=== PATIENT | female | born 1960 | race Caucasian/White ===

== ENCOUNTER 2017-05-29 19:45 | Emergency (ER) | payer OTHER ==
[2017-05-29] MEDS ORDERED: PERCOCET TABLET 5/325MG PO STA (20:07)
[2017-05-29] MEDS ORDERED: PERCOCET TABLET 5/325MG ONE (20:09)
--- NOTE | 2017-05-29 20:24 | ERPHSYRPT ---
- History of Present Illness Time Seen by Provider: 05/29/17 20:10 Source: patient Exam Limitations: no limitations Patient Subjective Stated Complaint: Pt c/o left foot pain since " or Monday". Pt sts dropped a "tub of crystals" on her left foot. Pt C/O pain left foot 04/02. Has not taken anything for pain or discomfort at home. Triage Nursing Assessment: Pt alert, oriented, answers all questions appropriately. Skin pink, warm, dry. Resps non-labored. Pt able to transfer self from wheelchair to bed with assist x 1. Pt with obvious swelling and redness left foot and left ankle. 2+ pedal pulses noted. Physician History: 57 y/o female comes to the ER after a tub of crystals fell on her left foot on of last week. Pt says she is having a difficult time putting weight on it. Pt describes the pain as sharp, constant, 8/10, worse with movement and not relieved on motrin. Pt has noticed that the swelling has gotten worse and is a diabetic patient. Method of Injury: direct blow Occurred: last week Quality: sharpness Severity of Pain-Max: severe Severity of Pain-Current: severe Lower Extremities Pain: foot: left Modifying Factors: Improves With: nothing Associated Symptoms: unable to bear weight Allergies/Adverse Reactions: gabapentin Adverse Reaction (Verified 05/29/17 20:14) Immunizations Up to Date: Yes - Review of Systems Constitutional: No Fever, No Chills Eyes: No Symptoms Ears, Nose, & Throat: No Symptoms Respiratory: No Cough, No Dyspnea Cardiac: No Chest Pain, No Edema, No Syncope Abdominal/Gastrointestinal: No Abdominal Pain, No Nausea, No Vomiting, No Diarrhea Genitourinary Symptoms: No Dysuria Musculoskeletal: Joint Swelling, No Back Pain, No Neck Pain Skin: Cellulitis, No Rash Neurological: No Dizziness, No Focal Weakness, No Sensory Changes Psychological: No Symptoms Endocrine: No Symptoms All Other Systems: Reviewed and Negative - Past Medical History Pertinent Past Medical History: Yes Cardiac History: Hypertension Endocrine Medical History: Diabetes Type II Other Medical History: gout, pt cannot remember other medical problems. - Past Surgical History Past Surgical History: Yes Female Surgical History: Hysterectomy Other Surgical History: right shoulder, left knee - Social History Smoking Status: Current every day smoker How long have you smoked: 42 Exposure to second hand smoke: No Drug Use: none Patient Lives Alone: No - Nursing Vital Signs Nursing Vital Signs: Initial Vital Signs Temperature 98.4 F 05/29/17 20:04 Pulse Rate 97 H 05/29/17 20:04 Respiratory Rate 16 05/29/17 20:04 Blood Pressure 128/74 05/29/17 20:04 O2 Sat by Pulse Oximetry 95 05/29/17 20:04 Pain Scale Pain Intensity 9 - Physical Exam General Appearance: alert Eyes, Ears, Nose, Throat Exam: moist mucous membranes Neck Exam: non-tender, supple Cardiovascular/Respiratory Exam: chest non-tender, normal breath sounds, regular rate/rhythm, no respiratory distress Gastrointestinal/Abdominal Exam: non-tender, guarding Back Exam: normal inspection, No vertebral tenderness Foot Exam: left foot: limited range of motion, pain, soft tissue tenderness, swelling Neuro/Tendon Exam: normal sensation, normal motor functions Mental Status Exam: alert, oriented x 3, cooperative Skin Exam: normal color, warm, dry SpO2: 95 Oxygen Delivery: Room Air - Course Nursing assessment & vital signs reviewed: Yes Ordered Tests: Active Orders 24 hr Category Date Time Status Crutches STAT Care 05/29/17 21:25 Active Splint STAT Care 05/29/17 21:25 Active FOOT (MINIMUM 3 VIEWS) Stat Exams 05/29/17 Taken Medication Summary Discontinued Medications Generic Name Dose Route Start Last Admin Trade Name Claudia PRN Reason Stop Dose Admin Oxycodone/Acetaminophen 1 tab 05/29/17 20:07 05/29/17 20:10 Percocet Tablet 5/325mg PO 05/29/17 20:08 1 tab STAT STA Administration Oxycodone/Acetaminophen Confirm 05/29/17 20:09 Percocet Tablet 5/325mg Administered 05/29/17 20:10 Dose 1 tab .ROUTE .STK-MED ONE Trimethoprim/Sulfamethoxazole 1 tab 05/29/17 21:23 05/29/17 21:28 Bactrim Ds Tablet PO 05/29/17 21:24 1 tab STAT STA Administration Trimethoprim/Sulfamethoxazole Confirm 05/29/17 21:27 Bactrim Ds Tablet Administered 05/29/17 21:28 Dose 1 tab PO .STK-MED ONE - Progress Progress: improved Progress Note: 05/29/17 21:26 The x ray of the foot does not show any acute fracture but the foot appears to be cellulitic. Pt will be d/d home with a post op shoe, crutches, percocet and bactrim. - Departure Time of Disposition: 21:27 Departure Disposition: Home Clinical Impression: Foot pain Qualifiers: Laterality: left Qualified Code(s): M79.672 - Pain in left foot Cellulitis Qualifiers: Site of cellulitis: other site Qualified Code(s): L03.818 - Cellulitis of other sites Condition: Stable Critical Care Time: No Referrals: JORGE A TSAI MD [Primary Care Provider] - Instructions: Cellulitis -- Adult, Foot Pain Additional Instructions: Follow up with your primary care doctor if you should have worsening pain or you are not able to ambulate. Prescriptions: Oxycodone HCl/Acetaminophen [Percocet 5-325 mg Tablet] 1 each PO QID PRN #15 tablet PRN Reason: Pain Sulfamethoxazole/Trimethoprim [Bactrim Ds Tablet] 1 each PO BID #13 tablet
[2017-05-29] MEDS ORDERED: BACTRIM DS TABLET PO STA (21:23)
[2017-05-29] MEDS ORDERED: BACTRIM DS TABLET PO ONE (21:27)
[2017-05-29 21:54] VITALS: BP 102/55; PULSE 70; O2SAT 96
--- NOTE | 2017-05-30 09:06 | XRAY ---
Indication: Pain and swelling following injury 4 days ago. Comparison: None 3 nonweightbearing views of the left foot demonstrates anterior soft tissue swelling, osteopenia, and tiny heel spurs. No other bony, articular, or soft tissue abnormalities.
== END 2017-05-29 21:55 | disposition home or self-care (01) ==
LOC: ED 19:45
DX: M79.672 Pain in left foot (principal); L03.818 Cellulitis of other sites; W20.8XXA Other cause of strike by thrown, projected or falling object, initial encounter; I10 Essential (primary) hypertension; E11.9 Type 2 diabetes mellitus without complications
CPT/HCPCS: 73630; 99283; A9270-GY

== ENCOUNTER 2018-11-06 11:10 | Emergency (ER) | payer OTHER ==
[2018-11-06 12:11] VITALS: BP 116/75; PULSE 79; O2SAT 97
--- NOTE | 2018-11-06 12:33 | XRAY ---
Indication: Pain and swelling following fall. Comparison: May 29, 2017. 3 nonweightbearing views of the left foot demonstrates stable osteopenia and tiny heel spurs. No new/acute bony, articular, or soft tissue abnormalities.
--- NOTE | 2018-11-06 12:52 | ERPHSYRPT ---
- History of Present Illness Time Seen by Provider: 11/06/18 11:40 Source: patient, family Patient Subjective Stated Complaint: "I fell 2 days ago about 4 or 5 times due to inner ear infection and being dizzy". "My foot is bruised and swollen and hurts to walik on". "I recently finished antibiotic for ear infection that was prescribed by dr Mckeon." Triage Nursing Assessment: Aaoc3, color good, no resp distress, swelling and discoloration noted to left foot. Physician History: 58 y/o white female presents with complaint of left foot pain. pt has fallen a few times at home during last week while fighting an inner ear infection with dizzines. pt fell and hurt left foot. since there was pain, swelling and bruising, she wanted it evaluated. Method of Injury: fell Occurred: last week Quality: aching Severity of Pain-Max: mild Severity of Pain-Current: mild Lower Extremities Pain: foot: left Modifying Factors: Improves With: movement Associated Symptoms: dizzy (being tx for an inner ear infection) Allergies/Adverse Reactions: gabapentin Adverse Reaction (Verified 05/29/17 20:14) Hx Tetanus, Diphtheria Vaccination/Date Given: No Hx Influenza Vaccination/Date Given: No Hx Pneumococcal Vaccination/Date Given: No Immunizations Up to Date: No - Review of Systems Constitutional: No Symptoms Eyes: No Symptoms Ears, Nose, & Throat: No Symptoms Respiratory: No Symptoms Cardiac: No Symptoms Abdominal/Gastrointestinal: No Symptoms Genitourinary Symptoms: No Symptoms Musculoskeletal: No Symptoms, Fall (left foot pain), Injury Skin: No Symptoms Neurological: Dizziness (fighting with and being tx for inner ear infection) Psychological: No Symptoms Endocrine: No Symptoms Hematologic/Lymphatic: No Symptoms Immunological/Allergic: No Symptoms All Other Systems: Reviewed and Negative - Past Medical History Pertinent Past Medical History: Yes Neurological History: No Pertinent History ENT History: No Pertinent History Cardiac History: Hypertension Respiratory History: No Pertinent History Endocrine Medical History: Diabetes Type II Musculoskeletal History: No Pertinent History GI Medical History: No Pertinent History, GERD History: No Pertinent History Psycho-Social History: Depression Female Reproductive Disorders: No Pertinent History Other Medical History: gout, pt cannot remember other medical problems. - Past Surgical History Past Surgical History: Yes Neuro Surgical History: No Pertinent History Cardiac: No Pertinent History Gastrointestinal: No Pertinent History Genitourinary: No Pertinent History Female Surgical History: Hysterectomy Other Surgical History: right shoulder, left knee - Social History Smoking Status: Current every day smoker How long have you smoked: 6 Exposure to second hand smoke: Yes Drug Use: none Patient Lives Alone: Yes - Female History Hx Now: No - Nursing Vital Signs Nursing Vital Signs: Initial Vital Signs Temperature 98.5 F 11/06/18 11:23 Pulse Rate 85 11/06/18 11:23 Respiratory Rate 20 11/06/18 11:23 Blood Pressure 117/77 11/06/18 11:23 O2 Sat by Pulse Oximetry 92 L 11/06/18 11:23 Pain Scale Pain Intensity 9 - Physical Exam General Appearance: no apparent distress, alert, anxiety Eyes, Ears, Nose, Throat Exam: normal ENT inspection, moist mucous membranes Neck Exam: normal inspection, non-tender, supple, full range of motion Cardiovascular/Respiratory Exam: chest non-tender Gastrointestinal/Abdominal Exam: non-tender, soft Back Exam: normal inspection, normal range of motion, No CVA tenderness, No vertebral tenderness Hips Exam: bilateral: non-tender, normal inspection, normal range of motion, no evidence of injury Legs Exam: bilateral leg: non-tender, normal inspection, normal range of motion , no evidence of injury Knees Exam: bilateral knee: non-tender, normal inspection, normal range of motion, no evidence of injury Ankle Exam: bilateral ankle: non-tender, normal inspection, normal range of motion, no evidence of injury Foot Exam: right foot: non-tender, normal range of motion, left foot: soft tissue tenderness, bilateral foot: ecchymosis, swelling Neuro/Tendon Exam: normal sensation, normal motor functions, normal tendon functions, responds to pain Mental Status Exam: alert, oriented x 3, cooperative Skin Exam: other (bruising present bilat feet) SpO2 Interpretation: normal SpO2: 97 O2 Delivery: Room Air - Course Nursing assessment & vital signs reviewed: Yes Ordered Tests: Active Orders 24 hr Category Date Time Status FOOT (MINIMUM 3 VIEWS) Stat Exams 11/06/18 11:41 Completed - Progress Progress: unchanged Progress Note: 11/06/18 12:53 xray left foot-no acute fx or dislocation Counseled pt/family regarding: diagnosis, need for follow-up, rad results - Departure Departure Disposition: Home Clinical Impression: Foot pain, left Clinical Impression: (Ruled Out): Left ankle sprain Condition: Stable Critical Care Time: No Referrals: MELVI MCKEON [Primary Care Provider] - Additional Instructions: ice pack 3 times daily for 3 days. wear anibal wrap for comfort. use tylenol and ibuprofen for pain. follow up with your primary doctor for persistent symptoms
== END 2018-11-06 13:03 | disposition home or self-care (01) ==
LOC: ED 11:10
DX: M79.672 Pain in left foot (principal); S93.402A Sprain of unspecified ligament of left ankle, initial encounter; W19.XXXA Unspecified fall, initial encounter; E11.9 Type 2 diabetes mellitus without complications; J44.9 Chronic obstructive pulmonary disease, unspecified; F32.9 Major depressive disorder, single episode, unspecified
CPT/HCPCS: 73630; 99283